=== PATIENT | female | born 1945 | race Caucasian/White ===

== ENCOUNTER 2021-09-22 18:52 | Inpatient (IN) | payer OTHER | END 2021-09-26 15:15 | disposition left against medical advice (07) | DRG 389 | LOC: SURH 18:52 | PROVIDERS: ADMIT Surgery; ATTEND Surgery | PROC: BW2110Z Computerized Tomography (CT Scan) of Abdomen and Pelvis using Low Osmolar Contrast, Unenhanced and Enhanced (ICD-10-PCS; principal; 2021-09-22) | PROC: B24BYZZ Ultrasonography of Heart with Aorta using Other Contrast (ICD-10-PCS; 2021-09-22) | DX: K56.609 Unspecified intestinal obstruction, unspecified as to partial versus complete obstruction (principal); K55.9 Vascular disorder of intestine, unspecified; K52.9 Noninfective gastroenteritis and colitis, unspecified | CPT/HCPCS: 240 ==